=== PATIENT | female | born 1945 | race Caucasian/White ===

== ENCOUNTER → 2022-08-09 | Emergency (ER) | payer OTHER ==
[~2022-08-09] VITALS: Ht 152.4 cm; Wt 83.9 kg
[~2022-08-09] MED LIST: ZESTRIL2.5 MG PO
== END | disposition home or self-care (01) ==
LOC: ER 19:59 → EDBD 19:59 → ER 21:12
DX: S90.872A Other superficial bite of left foot, initial encounter (principal); W54.0XXA Bitten by dog, initial encounter; Y93.89 Activity, other specified; Y92.9 Unspecified place or not applicable; Z88.0 Allergy status to penicillin